=== PATIENT | female | born 1995 | race African-American/Black ===

== ENCOUNTER 2017-02-12 16:31 | Emergency (ER) | payer SELFPAY ==
[~2017-02-12] VITALS: Ht 170.2 cm; Wt 63.0 kg
[2017-02-12] MEDS ORDERED: IBUPROFEN 400MG TABLET PO ONE (17:00)
[2017-02-12 17:01] VITALS: BP 123/82
== END 2017-02-12 17:24 | disposition home or self-care (01) ==
LOC: ER 17:06
DX: R09.89 Other specified symptoms and signs involving the circulatory and respiratory systems (principal)
CPT/HCPCS: 99282

== ENCOUNTER 2021-11-16 22:32 | Emergency (ER) | payer MEDICAID ==
[~2021-11-16] VITALS: Ht 170.2 cm; Wt 48.0 kg
[2021-11-16] MEDS ORDERED: SODIUM CHLORIDE 0.9% 1,000 ML IV ONE (23:15)
[2021-11-17] MEDS ORDERED: METOCLOPRAMIDE HCL 10MG/2ML VIAL IV ONE
[2021-11-17 01:15] LABS: CHLORIDE 104 mEq/L (98-107)
[2021-11-17 01:16] LABS: HEMATOCRIT. 39.7 % (36.0-48.0); HEMOGLOBIN. 13.5 g/dL (12.0-16.0); MEAN CORPUSCULAR HEMOGLOBIN 29.9 pg (28.0-32.0); MEAN CORPUSCULAR VOLUME 87.9 fL (81.0-99.0); MEAN PLATELET VOLUME 7.8 fl (7.4-10.4); PLATELET 333 x1000/uL (130-400); RED BLOOD CELL COUNT 4.52 mill/uL (4.2-5.4); RED CELL DISTRIBUTION WIDTH 13.3 % (11.6-14.6)
[2021-11-17 01:21] LABS: CLARITY URINE CLOUDY (CLEAR); COLOR URINE DARK YELLOW (YELLOW); KETONES URINE 2+ (NEGATIVE); LEUKOCYTE ESTERASE URINE NEGATIVE (NEGATIVE); NITRITE URINE NEGATIVE (NEGATIVE); OCCULT BLOOD URINE NEGATIVE (NEGATIVE); PH URINE 6.5 (4.5-8.0); PROTEIN URINE 1+ (NEGATIVE); SPECIFIC GRAVITY URINE 1.031 (1.005-1.030)
[2021-11-17 01:40] LABS: B-HCG QUANTITATIVE 182040 mIU/mL (<3)
[2021-11-17 03:00] VITALS: BP 130/82
[2021-11-17 05:32] LABS: PLATELET ESTIMATE NORMAL
== END 2021-11-17 03:45 | disposition home or self-care (01) ==
LOC: ER 22:32
DX: O21.9 Vomiting of pregnancy, unspecified (principal); Z3A.09 9 weeks gestation of pregnancy
CPT/HCPCS: 36415; 80053; 81003; 81025; 84702; 85025; 96361; 96374; 99283; J2765; J7030